=== PATIENT | female | born 1985 | race Two or more races ===

== ENCOUNTER → 2020-05-26 | Outpatient (CLI) | payer MEDICAID, OTHER | END | disposition home or self-care (01) | LOC: OB 14:16 | PROVIDERS: ATTEND Specialist | DX: Z36.0 Encounter for antenatal screening for chromosomal anomalies (principal); Z3A.24 24 weeks gestation of pregnancy | CPT/HCPCS: 76805 ==

== ENCOUNTER 2020-09-18 09:23 | Observation (INO) | payer MEDICAID ==
[~2020-09-18] VITALS: Ht 165.1 cm; Wt 79.8 kg
== END 2020-09-18 10:45 | disposition home or self-care (01) ==
LOC: LDRP 09:23
PROVIDERS: ADMIT Specialist; ATTEND Specialist
DX: O48.0 Post-term pregnancy (principal); O09.523 Supervision of elderly multigravida, third trimester; Z3A.40 40 weeks gestation of pregnancy
CPT/HCPCS: 59025; 76818; 81002; G0378

== ENCOUNTER 2020-09-20 06:25 | Inpatient (IN) | payer MEDICAID ==
[~2020-09-20] VITALS: Ht 160 cm; Wt 76.2 kg
[2020-09-20] MEDS ORDERED: BUTORPHANOL TARTRATE 2 MG/1 ML VIAL IV PRN (11:15)
[2020-09-20] MEDS ORDERED: LIDOCAINE 2%HCL (LOCAL ANESTH.) INJ 20ML MDV IJ ONE (11:15)
[2020-09-20] MEDS ORDERED: miSOPROStol 50 MCG per PRE-CUT 1/2 TAB PO PRN (11:15)
[2020-09-20] MEDS ORDERED: PROMETHAZINE HCL 25 MG/ML 1ML IV PRN (11:15)
[2020-09-20] MEDS ORDERED: DERMOPLAST 60ML BOTTLE TOP PRN (11:15)
[2020-09-20] MEDS ORDERED: PHISODERM TOP SOLN 240ML BTL TOP PRN (11:15)
[2020-09-20] MEDS ORDERED: WITCH HAZEL-GLYCERIN PAD TOP PRN (11:15)
[2020-09-20] MEDS: LACTATED RINGER'S 1,000 ML IV SCH ×2 (11:37→16:28)
[2020-09-20] MEDS ORDERED: PENICILLIN G POT 5MIL/D5 50ML 50 ML IV ONE (11:45)
[2020-09-20 12:02] LABS: Urine Bacteria FEW /hpf (None Seen); Urine Blood Negative /uL (Negative); Urine Mucus FEW (None Seen); Urine Specific Gravity 1.018 (1.001-1.035); Urine WBC 3 /hpf (0 - 5)
[2020-09-20 12:13] LABS: Albumin 2.7 g/dL (3.4-5.0); Calcium 8.9 mg/dL (8.5-10.1); Potassium 4.3 mmol/L (3.5-5.1)
[2020-09-20 12:17] LABS: INR 0.92 (0.9-1.15); Partial Thromboplastin Time 24.1 sec (23.0-31.2)
[2020-09-20 12:18] LABS: BUN/Creatinine Ratio 25.9; Bilirubin, Total 0.5 mg/dL (0.2-1.0); Total Protein 7.1 g/dL (6.4-8.2)
[2020-09-20 12:19] LABS: Basophils # (auto) 0 10 ^3/uL (0-0.2); Basophils % (auto) 0.2 % (0.0-2.0); Eosinophils # (auto) 0 10 ^3/uL (0-0.8); Eosinophils % (auto) 0.6 % (0.0-7.0); Hemoglobin 12.3 g/dL (12.2-16.2); Lymphocytes # (auto) 0.9 10 ^3/uL (0.4-5.4); Mean Corpuscular Hemoglobin 29.9 pg (28.0-32.0); Mean Corpuscular Hgb Conc. 34.2 g/dL (32.0-36.0); Mean Corpuscular Volume 87.6 fL (80.0-100.0); Monocytes # (auto) 0.6 10 ^3/uL (0-1.3); Monocytes % (auto) 7.1 % (0.0-12.0); Neutrophils # (auto) 6.8 10 ^3/uL (1.6-8.6); Neutrophils % (auto) 81.1 % (37.0-80.0); Nucleated Red Blood Cells % 0.1 %; Platelet Count (auto) 198 10^3/uL (140-450); Red Blood Cells 4.11 10^6/uL (4.0-5.20); Red Cell Distribution Width 14.4 % (11.8-14.3); White Blood Cell 8.4 10^3/uL (4.4-10.8)
[2020-09-20] MEDS: PENICILLIN G POTASSIUM 2,500,000 UNITS in D5W 5% 50 ML IV SCH ×2 (18:08→22:05)
[2020-09-20] MEDS ORDERED: TERBUTALINE SULFATE 1 MG/ML 1ML VIAL SC ONE (19:30)
[2020-09-20] MEDS ORDERED: LACT. RINGERS/OXYTOCIN 20UNITS 1,000 ML IV SCH (19:30)
[2020-09-20] MEDS ORDERED: OXYTOCIN 20 UNT in SODIUM CHLORIDE 0.9% 1,000 ML IV ONE (20:00)
[2020-09-21] VITALS (7 sets, daily range): BP systolic 107–128; BP diastolic 55–74
[2020-09-21] MEDS: LACTATED RINGER'S 1,000 ML IV SCH ×4 (01:32→17:17)
[2020-09-21] MEDS: PENICILLIN G POTASSIUM 2,500,000 UNITS in D5W 5% 50 ML IV SCH ×4 (02:02→13:40)
[2020-09-21 07:06] LABS: RPR Non Reactive (Non Reactive)
[2020-09-21] MEDS: BUTORPHANOL TARTRATE 2 MG/1 ML VIAL IV PRN ×2 (07:24→12:22)
[2020-09-21] MEDS ORDERED: LIDOCAINE 2%HCL (LOCAL ANESTH.) INJ 20ML MDV IJ ONE (16:00)
[2020-09-21] MEDS ORDERED: METHYLERGONOVINE MALEATE 0.2 MG/ML AMP IM PRN (16:00)
[2020-09-21] MEDS ORDERED: LACT. RINGERS/OXYTOCIN 20UNITS 1,000 ML IV ONE (16:00)
[2020-09-21] MEDS ORDERED: TETRACAINE 1% INJ 2 ML VIAL IJ ONE (17:36)
[2020-09-21] MEDS ORDERED: BUPIVACAINE 0.5% P/F INJ 10 ML VIAL ONE (17:40)
[2020-09-21] MEDS ORDERED: oxyTOCIN 10 UNIT/ML 10ML VIAL ONE (17:44)
[2020-09-21] MEDS ORDERED: MORPHINE SULF(PF) 0.5MG/ML 10ML VIAL ONE (17:44)
[2020-09-21] MEDS ORDERED: KETOROLAC TROMETH 30 MG/ML 1ML VIAL ONE (17:44)
[2020-09-21] MEDS ORDERED: GLYCOPYRROLATE 0.2 MG/ML 1ML VIAL ONE (17:44)
[2020-09-21] MEDS ORDERED: fentaNYL CITRATE 100 MCG/2 ML VL ONE (17:44)
[2020-09-21] MEDS ORDERED: ePHEDrine SULFATE 50 MG/ML AMP ONE (17:44)
[2020-09-21] MEDS ORDERED: ONDANSETRON HCL 4 MG/2 ML VIAL ONE (17:44)
[2020-09-21] MEDS ORDERED: MORPHINE SULF INJ 2 MG/ML SYRINGE 1ML IV PRN (17:45)
[2020-09-21] MEDS ORDERED: ceFAZolin 1GM/50ML 50 ML IV SCH (17:45)
[2020-09-21] MEDS ORDERED: ONDANSETRON HCL 4 MG/2 ML VIAL IV PRN ×2 (17:45→19:30)
[2020-09-21] MEDS ORDERED: LACT. RINGERS/OXYTOCIN 20UNITS 1,000 ML IV SCH (17:45)
[2020-09-21] MEDS ORDERED: ceFAZolin 1GM VL ONE (17:53)
[2020-09-21] MEDS ORDERED: KETOROLAC TROMETH 30 MG/ML 1ML VIAL IV PRN (19:30)
[2020-09-21] MEDS ORDERED: NALOXONE HCL 0.4 MG/ML VIAL IV PRN (19:30)
[2020-09-21] MEDS ORDERED: diphenhdrAMINE HCL 50 MG/1 ML VL IV PRN (19:30)
[2020-09-21] MEDS ORDERED: ACETAMINOPHEN IV 1000 MG/100ML (10MG/ML) IV ONE (20:15)
[2020-09-21 23:29] LABS: Basophils # (auto) 0 10 ^3/uL (0-0.2); Basophils % (auto) 0.1 % (0.0-2.0); Eosinophils # (auto) 0 10 ^3/uL (0-0.8); Hematocrit 29.3 % (36.0-46.0); Lymphocytes # (auto) 0.7 10 ^3/uL (0.4-5.4); Lymphocytes % (auto) 5.9 % (10.0-50.0); Mean Corpuscular Hemoglobin 30.4 pg (28.0-32.0); Mean Corpuscular Hgb Conc. 34.2 g/dL (32.0-36.0); Mean Corpuscular Volume 88.9 fL (80.0-100.0); Monocytes # (auto) 0.9 10 ^3/uL (0-1.3); Monocytes % (auto) 7.1 % (0.0-12.0); Neutrophils # (auto) 10.5 10 ^3/uL (1.6-8.6); Neutrophils % (auto) 86.9 % (37.0-80.0); Nucleated Red Blood Cells % 0.1 %; Platelet Count (auto) 159 10^3/uL (140-450); Red Blood Cells 3.29 10^6/uL (4.0-5.20); Red Cell Distribution Width 14.7 % (11.8-14.3); White Blood Cell 12.1 10^3/uL (4.4-10.8)
[2020-09-22] VITALS (12 sets, daily range): BP systolic 98–124; BP diastolic 54–75
[2020-09-22] MEDS ORDERED: LACTATED RINGER'S 1,000 ML IV SCH
[2020-09-22] MEDS: HYDROmorphone HCL 2 MG/ML VL IV PRN ×3 (03:35→14:34)
[2020-09-22 06:32] LABS: Basophils # (auto) 0 10 ^3/uL (0-0.2); Basophils % (auto) 0.1 % (0.0-2.0); Eosinophils # (auto) 0 10 ^3/uL (0-0.8); Eosinophils % (auto) 0.2 % (0.0-7.0); Hematocrit 27.1 % (36.0-46.0); Hemoglobin 9.3 g/dL (12.2-16.2); Lymphocytes % (auto) 11.1 % (10.0-50.0); Mean Corpuscular Hemoglobin 30.4 pg (28.0-32.0); Mean Corpuscular Hgb Conc. 34.3 g/dL (32.0-36.0); Mean Corpuscular Volume 88.7 fL (80.0-100.0); Monocytes # (auto) 0.8 10 ^3/uL (0-1.3); Monocytes % (auto) 8.7 % (0.0-12.0); Neutrophils # (auto) 7.5 10 ^3/uL (1.6-8.6); Neutrophils % (auto) 79.9 % (37.0-80.0); Platelet Count (auto) 151 10^3/uL (140-450); Red Blood Cells 3.05 10^6/uL (4.0-5.20); Red Cell Distribution Width 14.8 % (11.8-14.3); White Blood Cell 9.4 10^3/uL (4.4-10.8)
[2020-09-22] MEDS ORDERED: ceFAZolin 1GM/50ML 50 ML IV SCH (10:00)
[2020-09-22] MEDS ORDERED: SIMETHICONE 80 MG CHEWABLE TABLET PO PRN (17:45)
[2020-09-22] MEDS ORDERED: HYDROcodone-ACET 5/325MG TAB PO PRN ×2 (17:45)
[2020-09-22] MEDS: ceFAZolin 1GM/50ML 50 ML IV SCH (17:49)
[2020-09-22] MEDS: DOCUSATE SOD 100 MG CAP PO SCH (22:05)
[2020-09-23] MEDS: ceFAZolin 1GM/50ML 50 ML IV SCH ×3 (02:03→17:57)
[2020-09-23 03:00] VITALS: BP 120/73
[2020-09-23 07:15] VITALS: BP 122/73
[2020-09-23] MEDS: IBUPROFEN 800 MG TAB PO PRN ×2 (09:15→20:30)
[2020-09-23] MEDS: DOCUSATE SOD 100 MG CAP PO SCH ×2 (10:14→21:53)
[2020-09-23 11:00] VITALS: BP 113/62
[2020-09-23 13:28] LABS: Basophils # (auto) 0 10 ^3/uL (0-0.2); Basophils % (auto) 0.1 % (0.0-2.0); Eosinophils # (auto) 0.1 10 ^3/uL (0-0.8); Eosinophils % (auto) 0.6 % (0.0-7.0); Hematocrit 29.8 % (36.0-46.0); Hemoglobin 10.3 g/dL (12.2-16.2); Lymphocytes # (auto) 1.1 10 ^3/uL (0.4-5.4); Lymphocytes % (auto) 9.8 % (10.0-50.0); Mean Corpuscular Hemoglobin 30.5 pg (28.0-32.0); Mean Corpuscular Hgb Conc. 34.5 g/dL (32.0-36.0); Mean Corpuscular Volume 88.4 fL (80.0-100.0); Monocytes # (auto) 0.5 10 ^3/uL (0-1.3); Monocytes % (auto) 4.5 % (0.0-12.0); Neutrophils # (auto) 9.6 10 ^3/uL (1.6-8.6); Platelet Count (auto) 196 10^3/uL (140-450); Red Blood Cells 3.38 10^6/uL (4.0-5.20); Red Cell Distribution Width 14.9 % (11.8-14.3); White Blood Cell 11.3 10^3/uL (4.4-10.8)
[2020-09-23 13:47] LABS: Albumin 2.3 g/dL (3.4-5.0); Calcium 8.4 mg/dL (8.5-10.1); Potassium 3.7 mmol/L (3.5-5.1)
[2020-09-23 13:52] LABS: BUN/Creatinine Ratio 13.3; Bilirubin, Total 0.4 mg/dL (0.2-1.0); Total Protein 6.3 g/dL (6.4-8.2)
[2020-09-23] MEDS ORDERED: FUROSEMIDE 40 MG/4 ML VIAL IV ONE (14:00)
[2020-09-23 15:00] VITALS: BP 110/56
[2020-09-23 19:00] VITALS: BP 116/72
[2020-09-23 23:00] VITALS: BP 98/36
[2020-09-24] MEDS: ceFAZolin 1GM/50ML 50 ML IV SCH ×2 (01:57→10:47)
[2020-09-24 03:00] VITALS: BP 98/36
[2020-09-24 07:15] VITALS: BP 117/59
[2020-09-24] MEDS: IBUPROFEN 800 MG TAB PO PRN (09:48)
[2020-09-24 10:15] LABS: Basophils # (auto) 0 10 ^3/uL (0-0.2); Basophils % (auto) 0.6 % (0.0-2.0); Eosinophils # (auto) 0.2 10 ^3/uL (0-0.8); Eosinophils % (auto) 2.4 % (0.0-7.0); Hematocrit 30.1 % (36.0-46.0); Hemoglobin 10.4 g/dL (12.2-16.2); Lymphocytes % (auto) 11.8 % (10.0-50.0); Mean Corpuscular Hemoglobin 30.5 pg (28.0-32.0); Mean Corpuscular Hgb Conc. 34.5 g/dL (32.0-36.0); Mean Corpuscular Volume 88.5 fL (80.0-100.0); Monocytes # (auto) 0.4 10 ^3/uL (0-1.3); Monocytes % (auto) 4.8 % (0.0-12.0); Neutrophils # (auto) 6.9 10 ^3/uL (1.6-8.6); Neutrophils % (auto) 80.4 % (37.0-80.0); Nucleated Red Blood Cells % 0.1 %; Platelet Count (auto) 222 10^3/uL (140-450); White Blood Cell 8.6 10^3/uL (4.4-10.8)
[2020-09-24] MEDS: DOCUSATE SOD 100 MG CAP PO SCH (10:48)
[2020-09-24 11:25] VITALS: BP 122/75
== END 2020-09-24 14:41 | disposition home or self-care (01) | DRG 540 ==
LOC: LDRP 06:25 → OBSVTOIN 11:00 → LDRP 11:00
PROVIDERS: ADMIT Specialist; ATTEND Specialist
PROC: 0UL70CZ Occlusion of Bilateral Fallopian Tubes with Extraluminal Device, Open Approach (ICD-10-PCS; 2020-09-21)
PROC: 10D00Z1 Extraction of Products of Conception, Low, Open Approach (ICD-10-PCS; principal; 2020-09-21 17:44)
DX: O76 Abnormality in fetal heart rate and rhythm complicating labor and delivery (principal); O48.0 Post-term pregnancy; Z20.822 Contact with and (suspected) exposure to COVID-19; Z37.0 Single live birth; Z30.2 Encounter for sterilization; Z3A.40 40 weeks gestation of pregnancy; R09.02 Hypoxemia
CPT/HCPCS: 36415; 59025; 71045; 76818; 80053; 81001; 81002; 82962; 83880; 84112; 85025; 85379; 85610; 85730; 86592; 86850; 86900; 86901; 87426; 93970; 94760; 94762; 96360; 96361; 96365; 96366; 96374; 96375; G0378; J0131; J0690; J1885; J2405; J2540; J2590; J3490; J7060

== ENCOUNTER 2024-01-13 17:08 | Emergency (ER) | payer MEDICAID ==
[~2024-01-13] VITALS: Ht 157.5 cm; Wt 66.8 kg
[2024-01-13 17:30] LABS: Basophils # (auto) 0 10 ^3/uL (0-0.2); Basophils % (auto) 0.6 % (0.0-2.0); Eosinophils # (auto) 0.3 10 ^3/uL (0-0.8); Eosinophils % (auto) 5.4 % (0.0-7.0); Hematocrit 37.6 % (36.0-46.0); Hemoglobin 12.7 g/dL (12.2-16.2); Lymphocytes # (auto) 1.8 10 ^3/uL (0.4-5.4); Lymphocytes % (auto) 29.3 % (10.0-50.0); Mean Corpuscular Hemoglobin 30.2 pg (28.0-32.0); Mean Corpuscular Hgb Conc. 33.7 g/dL (32.0-36.0); Mean Corpuscular Volume 89.6 fL (80.0-100.0); Monocytes # (auto) 0.4 10 ^3/uL (0-1.3); Monocytes % (auto) 5.8 % (0.0-12.0); Neutrophils # (auto) 3.6 10 ^3/uL (1.6-8.6); Neutrophils % (auto) 58.9 % (37.0-80.0); Red Blood Cells 4.19 10^6/uL (4.0-5.20); Red Cell Distribution Width 14.5 % (11.8-14.3); White Blood Cell 6.1 10^3/uL (4.4-10.8)
[2024-01-13 17:44] LABS: Urine Bacteria None Seen /hpf (None Seen)
[2024-01-13 18:06] LABS: Alanine Aminotransferase 19 U/L (7-40); Albumin 4.5 g/dL (3.2-4.8); Alkaline Phosphatase 81 U/L (46-116); Anion Gap 7 (5-15); Aspartate Aminotransferase 15 U/L (13-40); BUN/Creatinine Ratio 17.2 (10.0-20.0); Bilirubin, Total 0.3 mg/dL (0.2-1.0); Blood Urea Nitrogen 10 mg/dL (9-23); Calcium 9.5 mg/dL (8.5-10.1); Carbon Dioxide 24 mmol/L (20-30); Chloride 109 mmol/L (98-107); Glucose 80 mg/dL (74-106); Potassium 3.8 mmol/L (3.5-5.1); Sodium 140 mmol/L (136-145); Total Protein 7.2 g/dL (5.7-8.2)
[2024-01-13 18:08] LABS: Urine Blood 2+ /uL (Negative); Urine Clarity Clear (Clear); Urine Color Colorless (Yellow); Urine Protein, UAD Negative (Negative); Urine Specific Gravity 1.005 (1.001-1.035); Urine Urobilinogen Normal (Negative); Urine WBC 2 /hpf (0 - 5)
[2024-01-14 00:36] VITALS: BP 132/83; PULSE 57; RESP 16; O2SAT 100
== END 2024-01-14 00:38 | disposition home or self-care (01) ==
LOC: ER 17:08
DX: R07.89 Other chest pain (principal); Z98.890 Other specified postprocedural states
CPT/HCPCS: 36415; 71046; 80053; 81001; 84484; 85025; 85379; 93005